=== PATIENT | male | born 1950 | race Hispanic/Latino ===

== ENCOUNTER 2017-01-08 11:24 | Emergency (ER) | payer OTHER, SELFPAY ==
[2017-01-08] MEDS ORDERED: Furosemide 40 MG/4 ML VIAL ONE (11:59)
[2017-01-08] MEDS ORDERED: Nitroglycerin 50 MG/250 ML BOT 250 ML ONE (12:17)
[2017-01-08 12:24] LABS: Bilirubin Small (Negative); Blood, Urine Negative (Negative); Clarity Slightly Cloudy (Clear); Glucose, Urine (Dipstick) Negative (Negative); Leukocyte Negative (Negative); Nitrite Negative (Negative); Protein, Urine (Dipstick) Trace mg/dL (Neg-Trace); pH, Urine 5.5 (5.0-9.0)
[2017-01-08 12:25] LABS: INR-International Normal Ratio 2.1; Prothrombin Time 23.9 SEC (12.0-14.7)
[2017-01-08 12:34] LABS: ALT (SGPT) 33 U/L (8-55); AST (SGOT) 72 U/L (5-34); Albumin 2.6 g/dL (3.4-4.8); Alkaline Phosphatase 116 U/L (40-150); Anion Gap 21 mmol/L (10-20); BUN (Urea Nitrogen) 20 mg/dL (8.4-25.7); Bilirubin, Total 4.5 mg/dL (0.2-1.2); Calc. Creatinine Clearance 0 mL/min (70-130); Calcium 8.1 mg/dL (7.8-10.44); Carbon Dioxide 12 mmol/L (23-31); Chloride 87 mmol/L (98-107); Estimated GFR-MDRD Greater than 90; Globulin 4.9 g/dL (2.4-3.5); Glucose 134 mg/dL (80-115); Lipase 9 U/L (8-78); Potassium 3.8 mmol/L (3.5-5.1); Protein, Total 7.5 g/dL (5.8-8.1)
[2017-01-08 12:40] LABS: Troponin I Less than 0.010 ng/mL (< 0.028)
[2017-01-08 12:40] LABS: D-Dimer Test 5.99 *mcg/mL (0.27-0.43)
[2017-01-08 12:42] LABS: Sodium 116 mmol/L (136-145)
[2017-01-08 12:45] LABS: Band 1 % (5-11); Crenated RBC MODERATE= 6-15 cells (100X) (None Seen); Hemoglobin 12.2 g/dL (14.0-18.0); Lymphocytes 3 % (21-51); MDiff Complete? YES; Mean Corpuscular HGB CONC 34.4 g/dL (32.0-36.0); Mean Corpuscular Hemoglobin 34.3 pg (27.0-31.0); Mean Corpuscular Volume 99.5 fl (80.0-94.0); Mean Platelet Volume 7.4 fL (7.4-10.4); Monocytes 4 % (0-10); Neutrophil 92 % (42-75); Platelet Count 207 thou/uL (130-400); RBC Distribution Width 13.9 % (11.5-14.5); Red Blood Cell (RBC) Count 3.56 mill/uL (4.70-6.10); White Blood Cell (WBC) Count 20.7 thou/uL (4.8-10.8)
--- NOTE | 2017-01-08 13:49 | RAD ---
CHEST 1 VIEW: Date: 01/08/17 HISTORY: Cough and congestion. FINDINGS: No comparison. The cardiac silhouette is magnified by projection. Pulmonary vasculature is upper limits of normal. Bilateral perihilar infiltrates are present without lobar consolidation. No evidence of pneumothorax . monitor and storage bin tender leads overlie the chest. IMPRESSION: Bilateral perihilar infiltrates may be related to pulmonary vascular congestion or bilateral pneumon itis. POS: [facility]
== END 2017-01-08 13:41 | disposition short-term general hospital (02) ==
LOC: BURERS 11:24
DX: J81.0 Acute pulmonary edema (principal); F17.210 Nicotine dependence, cigarettes, uncomplicated
CPT/HCPCS: 51702; 71010; 80053; 81003; 82553; 83605; 83690; 83880; 84484; 85025; 85379; 85610; 85730; 87040; 93005; 94660; 94760; 96365; 96375; J1940